=== PATIENT | male | born 1980 | race Caucasian/White ===

== ENCOUNTER 2017-01-09 11:12 | Emergency (ER) | payer MEDICAID ==
[2017-01-09] MEDS ORDERED: Aspirin 81 MG Tab.Chew PO ONE (11:28)
[2017-01-09] MEDS ORDERED: Nitroglycerin 0.4 MG Tab.SL SL PRN (11:29)
[2017-01-09] MEDS ORDERED: Sodium Chloride 0.9% 10 ML Syringe FLUSH PRN ×2 (11:30→11:36)
[2017-01-09] MEDS ORDERED: Heparin Sodium 5,000 Units/ML Vial IVPUSH ONE (11:37)
[2017-01-09] MEDS ORDERED: Clopidogrel 75 MG Tab PO ONE (11:37)
[2017-01-09] MEDS ORDERED: Heparin Sodium/D5W 25,000 UNITS/500 ML BAG IV SCH (11:45)
[2017-01-09] MEDS ORDERED: Nitroglycerin/D5W 25 MG/250 ML BOTTLE IV SCH (11:45)
[2017-01-09 11:55] VITALS: BP 156/96
[2017-01-09] MEDS ORDERED: Ondansetron 4 MG/2 ML SDV IV ONE (11:58)
[2017-01-09 12:09] LABS: CHLORIDE,CL 102 mmol/L (101-111); SODIUM,NA 139 mmol/L (135-145)
--- NOTE | 2017-01-09 12:21 | EDM.PDOC ---
Scribed by Daisy Bajwa 01/09/17 1217 for Shawn Bowie MD ED HPI GENERAL MEDICAL PROBLEM - General Chief Complaint: Chest Pain Stated Complaint: CHEST PAIN [id number] Time Seen by Provider: 01/09/17 11:20 Source of Information: Reports: Patient, RN, RN Notes Reviewed History Limitations: Reports: Other (Kittitian speaking) - History of Present Illness INITIAL COMMENTS - FREE TEXT/NARRATIVE: Arrives from home by POV with complaint of not feeling well all day and then onset of severe chest pain radiating to left shoulder down to the elbow. 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 Rates pain 7/10. Describes pain crushing. No meds HEAD IRRIGATOR. Onset: Today Duration: Getting Worse Location: Reports: Chest Quality: Reports: Ache, Other (crushing) Severity: Severe Improves with: Reports: None Worsens with: Reports: None Associated Symptoms: Reports: No Other Symptoms ED ROS GENERAL - Review of Systems Review Of Systems: ROS reveals no pertinent complaints other than HPI. ED EXAM, GENERAL - Physical Exam Exam: See Below Exam Limited By: No Limitations General Appearance: Other (acutely ill, diaphoretic.) Eye Exam: Bilateral Eye: Normal Inspection Nose: Normal Inspection, Normal Mucosa, No Blood Throat/Mouth: Normal Inspection, Normal Lips, Normal Teeth, Normal Gums, Normal Oropharynx, Normal Voice, No Airway Compromise Head: Atraumatic, Normocephalic Neck: Other (No JVD.) Respiratory/Chest: No Respiratory Distress, Lungs Clear, Normal Breath Sounds, No Accessory Muscle Use, Chest Non-Tender Cardiovascular: Normal Peripheral Pulses, Regular Rate, Rhythm, No Edema, No Gallop, No JVD, No Murmur, No Rub GI/Abdominal: Normal Bowel Sounds, Soft, Non-Tender, No Organomegaly, No Distention, No Abnormal Bruit, No Mass (Male) Exam: Deferred Rectal (Males) Exam: Deferred Back Exam: Normal Inspection, Full Range of Motion, NT Extremities: Normal Inspection, Normal Range of Motion, Non-Tender, Normal Capillary Refill, No Pedal Edema Neurological: Alert, Oriented, CN II-XII Intact, Normal Cognition, Normal Gait, Normal Reflexes, No Motor/Sensory Deficits Psychiatric: Anxious Skin Exam: Diaphoretic (otherwise normal.) Lymphatic: No Adenopathy EKG INTERPRETATION EKG Date: 01/09/17 Time: 11:29 Rate (Beats/Min): 95 ST-T: Other (ST STEMI.) Comparison: NA - No Prior EKG Course - Vital Signs Last Recorded V/S: Last Vital Signs Temp 36.2 C 01/09/17 11:32 Pulse 95 01/09/17 11:32 Resp 24 H 01/09/17 11:32 BP 156/96 H 01/09/17 11:32 Pulse Ox 100 01/09/17 11:32 - Orders/Labs/Meds Orders: Active Orders 24 hr Category Date Time Status EKG 12 Lead [EKG Documentation Completion] [] STAT Care 01/09/17 11:31 Active Peripheral IV Care [] . DIRECTED Care 01/09/17 11:31 Active Peripheral IV Care [] . DIRECTED Care 01/09/17 11:36 Active CK W CKMB [CHEM] Stat Lab 01/09/17 11:40 Received DRUG SCREEN URINE BIORAD [URCHEM] Stat Lab 01/09/17 11:31 Uncollected UA W/MICROSCOPIC [URIN] Stat Lab 01/09/17 11:31 Uncollected Heparin Sodium/D5W [Heparin 25,000 Units in D5W 500 ML] Med 01/09/17 11:45 Ordered 25,000 units in 500 ml IV TITRATE Nitroglycerin [Nitrostat] Med 01/09/17 11:29 Active 0.4 mg SL Q5M PRN Nitroglycerin/D5W [Nitroglycerin 25 MG/D5W 250 ML] Med 01/09/17 11:45 Active 25 mg in 250 ml IV TITRATE Sodium Chloride 0.9% [Saline Flush] Med 01/09/17 11:30 Active 10 ml FLUSH ASDIRECTED PRN Sodium Chloride 0.9% [Saline Flush] Med 01/09/17 11:36 Active 10 ml FLUSH ASDIRECTED PRN Peripheral IV Insertion Adult [OM.PC] Stat Oth 01/09/17 11:30 Ordered Peripheral IV Insertion Adult [OM.PC] Stat Oth 01/09/17 11:36 Ordered Medication Orders Nitroglycerin/Dextrose (Nitroglycerin 25 Mg/D5w 250 Ml) 25 mg in 250 mls @ 6 mls/hr IV TITRATE DANNY; 10 MCG/MIN PRN Reason: Protocol Last Admin: 01/09/17 11:45 Dose: 10 mcg/min, 6 mls/hr Heparin Sodium/Dextrose (Heparin 25,000 Units In D5w 500 Ml) 25,000 units in 500 mls @ IV TITRATE DANNY; 12 UNITS/KG/HR PRN Reason: Protocol Nitroglycerin (Nitrostat) 0.4 mg SL Q5M PRN PRN Reason: Chest Pain Sodium Chloride (Saline Flush) 10 ml FLUSH ASDIRECTED PRN PRN Reason: Keep Vein Open Sodium Chloride (Saline Flush) 10 ml FLUSH ASDIRECTED PRN PRN Reason: Keep Vein Open Labs: Laboratory Tests 01/09/17 01/09/17 01/09/17 Range/Units 11:40 11:40 11:40 WBC 22.5 H (5.0-10.0) 10^3/uL RBC 5.18 (4.6-6.2) 10^6/uL Hgb 13.9 L (14.0-18.0) g/dL Hct 41.1 (40.0-54.0) % MCV 79.3 L (80-100) fL MCH 26.8 L (27.0-34.0) pg MCHC 33.8 (33.0-35.0) g/dL Plt Count 514 H (150-450) 10^3/uL Neut % (Auto) 81.9 H (42.2-75.2) % Lymph % (Auto) 10.7 L (20.5-50.1) % [place] % (Auto) 5.6 (2-8) % Eos % (Auto) 1.4 (1.0-3.0) % Baso % (Auto) 0.4 (0.0-1.0) % PT 10.5 (9.0-12.0) SEC INR 1.0 (0.9-1.2) APTT 24.0 (22.0-34.0) SEC D-Dimer, Quantitative (0-400) ng/mL Sodium 139 (135-145) mmol/L Potassium 3.5 L (3.6-5.0) mmol/L Chloride 102 (101-111) mmol/L Carbon Dioxide 23.0 (21.0-31.0) mmol/L Anion Gap 17.5 BUN 15 (7-18) mg/dL Creatinine 0.6 (0.6-1.3) mg/dL Est Cr Clr Drug Dosing 166.25 mL/min Estimated GFR (MDRD) > 60 BUN/Creatinine Ratio 25.00 Glucose 123 H (74-105) mg/dL Calcium 9.3 (8.4-10.2) mg/dl Total Bilirubin 0.9 (0.2-1.0) mg/dL AST 160 H (10-42) IU/L ALT 106 H (10-60) IU/L Alkaline Phosphatase 48 (42-121) IU/L Troponin I 0.21 H* (0.00-0.02) ng/ml Total Protein 7.8 (6.7-8.2) g/dl Albumin 3.4 (3.2-5.5) g/dl Globulin 4.4 Albumin/Globulin Ratio 0.77 Amylase 21 L (28-100) U/L Lipase 26 (22-51) U/L Ethyl Alcohol < 5 mg/dL 01/09/17 Range/Units 11:40 WBC (5.0-10.0) 10^3/uL RBC (4.6-6.2) 10^6/uL Hgb (14.0-18.0) g/dL Hct (40.0-54.0) % MCV (80-100) fL MCH (27.0-34.0) pg MCHC (33.0-35.0) g/dL Plt Count (150-450) 10^3/uL Neut % (Auto) (42.2-75.2) % Lymph % (Auto) (20.5-50.1) % [place] % (Auto) (2-8) % Eos % (Auto) (1.0-3.0) % Baso % (Auto) (0.0-1.0) % PT (9.0-12.0) SEC INR (0.9-1.2) APTT (22.0-34.0) SEC D-Dimer, Quantitative 2550 H (0-400) ng/mL Sodium (135-145) mmol/L Potassium (3.6-5.0) mmol/L Chloride (101-111) mmol/L Carbon Dioxide (21.0-31.0) mmol/L Anion Gap BUN (7-18) mg/dL Creatinine (0.6-1.3) mg/dL Est Cr Clr Drug Dosing mL/min Estimated GFR (MDRD) BUN/Creatinine Ratio Glucose (74-105) mg/dL Calcium (8.4-10.2) mg/dl Total Bilirubin (0.2-1.0) mg/dL AST (10-42) IU/L ALT (10-60) IU/L Alkaline Phosphatase (42-121) IU/L Troponin I (0.00-0.02) ng/ml Total Protein (6.7-8.2) g/dl Albumin (3.2-5.5) g/dl Globulin Albumin/Globulin Ratio Amylase (28-100) U/L Lipase (22-51) U/L Ethyl Alcohol mg/dL Meds: Medications Generic Name Dose Route Start Last Admin Trade Name Freq PRN Reason Stop Dose Admin Nitroglycerin/Dextrose 25 mg in 250 mls @ 6 mls/hr 01/09/17 11:45 01/09/17 11 :45 Nitroglycerin 25 Mg/D5w 250 Ml IV 10 mcg/min TITRATE DANNY 6 mls/hr Protocol Administration 10 MCG/MIN Heparin Sodium/Dextrose 25,000 units in 500 mls @ 01/09/17 11:45 Heparin 25,000 Units In D5w 500 Ml IV TITRATE DANNY Protocol 12 UNITS/KG/HR Nitroglycerin 0.4 mg 01/09/17 11:29 Nitrostat SL Q5M PRN Chest Pain Sodium Chloride 10 ml 01/09/17 11:30 Saline Flush FLUSH ASDIRECTED PRN Keep Vein Open Sodium Chloride 10 ml 01/09/17 11:36 Saline Flush FLUSH ASDIRECTED PRN Keep Vein Open Discontinued Medications Generic Name Dose Route Start Last Admin Trade Name Josephq PRN Reason Stop Dose Admin Aspirin 324 mg 01/09/17 11:28 01/09/17 11:36 Aspirin PO 01/09/17 11:29 324 mg ONETIME ONE Administration Clopidogrel Bisulfate 600 mg 01/09/17 11:37 01/09/17 11:47 Plavix PO 01/09/17 11:38 600 mg ONETIME ONE Administration Heparin Sodium (Porcine) 5,000 units 01/09/17 11:37 01/09/17 11:43 Heparin Sodium IVPUSH 01/09/17 11:38 5,000 units ONETIME ONE Administration Ondansetron HCl 4 mg 01/09/17 11:58 01/09/17 12:00 Zofran IV 01/09/17 11:59 4 mg ONETIME ONE Administration - Radiology Interpretation Free Text/Narrative:: Chest x-ray: Per rad report reveals mild patchy bibasilar atelectasis or infiltrate. - Re-Assessments/Exams Free Text/Narrative Re-Assessment/Exam: 01/09/17 12:[address] Alejandra commercial lines underwriter at [facility] who accepted patient as Air Lift transport directly to his services with plans to proceed directly to research laboratory specialist. Due to onset of availability of flight crew, he advises that patient not receive TPA, thrombolytic therapy for the STEMI as he will be able to be within research laboratory specialist within the next 30 minutes. Departure - Departure Time of Disposition: 12:04 Disposition: DC/Tfer to Acute Hospital 02 Reason for Transfer *Q: Primary PCI Indicated Condition: Critical Clinical Impression: STEMI (ST elevation myocardial infarction) Qualifiers: Involved coronary artery: unspecified coronary artery Qualified Code(s): I21.3 - ST elevation (STEMI) myocardial infarction of unspecified site Forms: ED Department Discharge, Interfacility Transfer EMTALA - My Orders Last 24 Hours: My Active Orders 01/09/17 11:29 Nitroglycerin [Nitrostat] 0.4 mg SL Q5M PRN 01/09/17 11:30 Sodium Chloride 0.9% [Saline Flush] 10 ml FLUSH ASDIRECTED PRN Peripheral IV Insertion Adult [OM.PC] Stat 01/09/17 11:31 EKG 12 Lead [EKG Documentation Completion] [RC] STAT Peripheral IV Care [RC] . DIRECTED DRUG SCREEN URINE BIORAD [URCHEM] Stat UA W/MICROSCOPIC [URIN] Stat 01/09/17 11:36 Peripheral IV Care [RC] . DIRECTED Sodium Chloride 0.9% [Saline Flush] 10 ml FLUSH ASDIRECTED PRN Peripheral IV Insertion Adult [OM.PC] Stat 01/09/17 11:40 CK W CKMB [CHEM] Stat 01/09/17 11:45 Heparin Sodium/D5W [Heparin 25,000 Units in D5W 500 ML] 25,000 units in 500 ml IV TITRATE Nitroglycerin/D5W [Nitroglycerin 25 MG/D5W 250 ML] 25 mg in 250 ml IV TITRATE - Assessment/Plan Last 24 Hours: My Active Orders 01/09/17 11:29 Nitroglycerin [Nitrostat] 0.4 mg SL Q5M PRN 01/09/17 11:30 Sodium Chloride 0.9% [Saline Flush] 10 ml FLUSH ASDIRECTED PRN Peripheral IV Insertion Adult [OM.PC] Stat 01/09/17 11:31 EKG 12 Lead [EKG Documentation Completion] [RC] STAT Peripheral IV Care [RC] . DIRECTED DRUG SCREEN URINE BIORAD [URCHEM] Stat UA W/MICROSCOPIC [URIN] Stat 01/09/17 11:36 Peripheral IV Care [RC] . DIRECTED Sodium Chloride 0.9% [Saline Flush] 10 ml FLUSH ASDIRECTED PRN Peripheral IV Insertion Adult [OM.PC] Stat 01/09/17 11:40 CK W CKMB [CHEM] Stat 01/09/17 11:45 Heparin Sodium/D5W [Heparin 25,000 Units in D5W 500 ML] 25,000 units in 500 ml IV TITRATE Nitroglycerin/D5W [Nitroglycerin 25 MG/D5W 250 ML] 25 mg in 250 ml IV TITRATE I have read and agree with the documentation that has been completed regarding this visit. By signing this record, I attest that the documentation was completed in my physical presence and is an accurate record of the encounter.
[2017-01-09] MEDS ORDERED: Heparin Sodium/D5W 500 ML IV ONE (15:32)
--- NOTE | 2017-01-12 12:35 | EKG ---
01/09/2017 - PALOMO LEARY - EKG per my reading shows sinus rhythm with abnormal repolarization pattern at a rate of 95. MOD /[id number]
== END 2017-01-09 12:25 ==
LOC: DL.ED 11:12
DX: I21.3 ST elevation (STEMI) myocardial infarction of unspecified site (principal)
CPT/HCPCS: 36415; 71010; 80053; 82150; 82550; 82553; 83690; 84484; 85025; 85379; 85610; 85730; 93005; 96365; 96375; 99285; A9270; G0480; J1644; J2405; 93010